=== PATIENT | female | born 1990 | race Caucasian/White ===

== ENCOUNTER 2016-10-26 21:14 | Emergency (ER) | payer SELFPAY ==
--- NOTE | 2016-10-26 22:00 | UC ---
Complaint Female HPI - HPI Summary HPI Summary: 26 YO FEMALE WITH CRAMPY PELVIC PAIN (l>r) X 3-4 DAYS NO N/V NO F/C NO VAG D/C OR ITCH NO UTI SYMPTOMS HAS AN IUD - History Of Current Complaint Chief Complaint: UCGU Stated Complaint: PELVIC PAIN/CRAMPING Time Seen by Provider: 10/26/16 21:26 Hx Obtained From: Patient Hx Last Menstrual Period: 10/04/16 Onset/Duration: Gradual Onset, Lasting Days Timing: Constant Severity Initially: Mild Severity Currently: Mild Pain Intensity: 4 - 5 AT MAX Pain Scale Used: 0-10 Numeric Character: Cramping Aggravating Factor(s): Nothing Alleviating Factor(s): Nothing - Allergies/Home Medications Allergies/Adverse Reactions: Allergies Allergy/AdvReac Type Severity Reaction Status Date / Time Penicillins [PCN] Allergy Unknown Verified 10/26/16 21:25 Reaction Details Home Medications: Home Medications Albuterol HFA INHALER* [Ventolin HFA Inhaler*] 2 puff INH Q4H PRN 10/26/16 [ History Confirmed 10/26/16] Budesonide/Formote 160/4.5(NF) [Symbicort 160/4.5 (NF)] 2 puff INH BID 10/26/16 [History Confirmed 10/26/16] Cetirizine* [ZyrTEC 10 MG TAB*] 10 mg PO DAILY 10/26/16 [History Confirmed 10/26] Fluticasone NASAL SPRAY 50MCG* [Flonase NASAL SPRAY 50MCG*] 2 spray BOTH NARES DAILY 10/26/16 [History Confirmed 10/26/16] PMH/Surg Hx/FS Hx/Imm Hx Previously Healthy: Yes - Surgical History Surgical History: None - Family History Known Family History: Positive: Hypertension, Diabetes - Social History Alcohol Use: Weekly Substance Use Type: None Smoking Status (MU): Light Every Day Tobacco Smoker Amount Used/How Often: 5 cigs per day Review of Systems Constitutional: Negative Skin: Negative Eyes: Negative ENT: Negative Respiratory: Negative Cardiovascular: Negative Gastrointestinal: Negative Genitourinary: Other - PELVIC CRAMPING Motor: Negative Neurovascular: Negative Musculoskeletal: Negative Neurological: Negative Psychological: Negative All Other Systems Reviewed And Are Negative: Yes Physical Exam Triage Information Reviewed: Yes Appearance: Well-Appearing, Well-Nourished Vital Signs: Initial Vital Signs Temp 97.7 F 10/26/16 21:20 Pulse 85 10/26/16 21:20 Resp 16 10/26/16 21:20 BP 143/78 10/26/16 21:20 Pulse Ox 100 10/26/16 21:20 Vital Signs Reviewed: Yes Eyes: Positive: Conjunctiva Clear ENT: Positive: Hearing grossly normal, Pharynx normal, TMs normal. Negative: Trismus, Muffled/hoarse voice Neck: Positive: Supple, Nontender, No Lymphadenopathy Respiratory: Positive: Lungs clear, Normal breath sounds, No respiratory distress, No accessory muscle use Cardiovascular: Positive: RRR, No Murmur Abdomen Description: Positive: Nontender, No Organomegaly, Soft, Other: - PELVIC EXAM: EXT GENT-NORMAL, VAGINA-SCANT D/C, CX -IUD STRING NOTED, NO D/C, NO CMT, NO ADENEXAL MASSES, L>R TENDERNESS. Negative: CVA Tenderness (R), CVA Tenderness (L), Distended Complaint Female Dx - Differential Dx/Diagnosis Provider Diagnoses: PELVIC PAIN OF UNCERTAIN CAUSE Discharge - Discharge Plan Condition: Stable Disposition: HOME Patient Education Materials: Pelvic Pain in Women (ED) Additional Instructions: tests are pending I suggest advil or aleve for pain TO ER FOR INCREASED PAIN/FEVER/VOMITING RECHECK IN 1-2 DAYS IF NOT BETTER CALL [facility] IN AM IF NOT BETTER YOUR BP WAS A LITTLE HIGH HERE AND SHOULD BE RECHECKED
[2016-10-26 22:07] VITALS: BP 143/78
== END 2016-10-26 22:00 | disposition home or self-care (01) ==
LOC: UCCORT 21:14
DX: R10.2 Pelvic and perineal pain (principal); Z88.0 Allergy status to penicillin; F17.210 Nicotine dependence, cigarettes, uncomplicated; Z32.02 Encounter for pregnancy test, result negative
CPT/HCPCS: 81003; 84702; 87480; 87491; 87510; 87591; 87661; 99202; G0463